=== PATIENT | female | born 1995 | race African-American/Black ===

== ENCOUNTER 2019-03-21 19:55 | Emergency (ER) | payer OTHER ==
[~2019-03-21] VITALS: Ht 165.1 cm; Wt 74.8 kg
[2019-03-21 19:41] VITALS: BP 126/84
--- NOTE | 2019-03-21 19:57 | NUR ---
Patient eloped while [employer] still here.
[2019-03-21 20:00] VITALS: BP 126/84
--- NOTE | 2019-03-21 20:00 | Emergency Room Report ---
History of Present Illness General Chief Complaint: General Complaint Source: EMS Present Illness HPI Patient is a 23-year-old female who presented with EMS after being brought in from an apartment building where she formerly lived. Patient reportedly had refused to leave. Patient stated she did not want to be seen and wanted to leave.Patient was reportedly not in police custody although police were present. Allergies: Coded Allergies: UNABLE TO ASSESS (Unverified , 03/21/19) Patient History Now: No - unk Reviewed Nursing Documentation: PMH: Agreed; PSxH: Agreed Nursing Documentation-PMH Past Medical History: Deferred Review of Systems All Other Systems: negative except mentioned in HPI Physical Exam Vital Signs Date Time Temp Pulse Resp B/P (MAP) Pulse Ox O2 Delivery O2 Flow Rate FiO2 03/21/19 19:41 119 18 98 Room Air General Appearance: well appearing, no apparent distress, alert, non-toxic, obese Head: normocephalic, atraumatic ENT: hearing grossly normal, normal voice Neck: full range of motion, supple Respiratory: no respiratory distress, speaking full sentences Cardiovascular #1: normal inspection Neurologic: alert, responsive, normal gait Psychiatric: normal inspection, mood/affect normal Skin: no rash Medical Decision Making Diagnostic Impression: Primary Impression: Encounter for medical screening examination ER Course Patient presented for generalized complaint. Patient refused medical treatment. History is markedly limited by patient's poor cooperation. Patient stated that she wanted to leave. She did not appear to be in any acute distress and does not appear to be responding to internal stimuli. Patient appears to be capable of self-care. Patient left the hospital. Patient was not on any psychiatric hold and refused medical screening Last Vital Signs Date Time Temp Pulse Resp B/P (MAP) Pulse Ox O2 Delivery O2 Flow Rate FiO2 03/21/19 19:41 119 18 98 Room Air Status: unchanged Disposition: HOME, SELF-CARE Condition: Stable Zach Zazueta MD March 21, 2019 20:00
--- NOTE | 2019-03-21 20:01 | NUR ---
ER Nurse Note: Pt BIBA from an apartment complex that was not hers and refused to leave even after [employer] called. Pt refused to speak with staff members, [employer] and [employer]. ERMD at pt side but did not communciate with MD. Pt left with [employer] at pt side while pt left facility. Pt not throughly examined by primary nurse.
== END 2019-03-21 20:05 | disposition home or self-care (01) ==
LOC: EDBD 19:55 → EMR 20:04
DX: Z00.00 Encounter for general adult medical examination without abnormal findings (principal)
CPT/HCPCS: 99281